=== PATIENT | male | born 1950 | race Caucasian/White ===

== ENCOUNTER 2017-11-17 09:45 | Inpatient (IN) | payer OTHER ==
[2017-11-17] MEDS ORDERED: ACETAMINOPHEN 325 MG TAB PO ONE (10:01)
[2017-11-17] MEDS ORDERED: DEXAMETHASONE 4 MG/ML VIAL IVP ONE (10:01)
[2017-11-17] MEDS ORDERED: TRANEXAMIC ACID 2,000 MG in NS 100 ML IV ONE (10:01)
[2017-11-17] MEDS ORDERED: POVIDONE-IODINE 20 ML in SODIUM CL IRRIG SOLUTION 500 ML IRR ONE (10:01)
[2017-11-17] MEDS ORDERED: LIDOCAINE 1% 2 ML INJ ID PRN (10:01)
[2017-11-17] MEDS ORDERED: ONDANSETRON DISINTEGRATING 4 MG TAB PO ONE (10:01)
[2017-11-17] MEDS ORDERED: GABAPENTIN 300 MG CAP PO ONE (10:01)
[2017-11-17] MEDS ORDERED: ROPIVACAINE 0.2% 80 MG, EPINEPHrine 0.2 MG, KETOROLAC TROMETHAMINE 30 MG in SYRINGE 0 ML IU ONE (10:01)
[2017-11-17] MEDS ORDERED: LR 1,000 ML IV ONE (10:01)
[2017-11-17] MEDS ORDERED: FAMOTIDINE 20 MG TAB PO ONE (10:01)
[2017-11-17] MEDS ORDERED: ceFAZolin 2 GM/SWFI 2 GM/20 ML SYR IVP ONE (10:01)
[2017-11-17] MEDS ORDERED: ceFAZolin 1 GM/5 ML SYR ONE (10:03)
[2017-11-17] MEDS ORDERED: ONDANSETRON DISINTEGRATING 4 MG TAB ONE (10:23)
--- NOTE | 2017-11-17 13:43 | PDHPUP ---
History & Physical Update H&P update statement: This history and physical update is based on an assessment of the patient which was completed after admission or registration (within 24 hours), but prior to the surgery/procedure. H&P update: H&P reviewed & patient examined, no change in patient's condition since H&P completed
--- NOTE | 2017-11-17 13:57 | PDANEPAE ---
ANE History of Present Illness r oliva ANE Past Medical History - Cardiovascular History Hx Hypertension: Yes Hx Arrhythmias: No Hx Chest Pain: No Hx Coronary Artery / Peripheral Vascular Disease: Yes Hx CHF / Valvular Disease: No Hx Palpitations: No Cardiovascular History Comment: CARDIAC STENT X1 - Pulmonary History Hx COPD: No Hx Asthma/Reactive Airway Disease: No Hx Recent Upper Respiratory Infection: No Hx Oxygen in Use at Home: No Hx Sleep Apnea: No Sleep Apnea Screening Result - Last Documented: Negative Pulmonary History Comment: ALLERGIES RAGWEED - Neurologic History Hx Cerebrovascular Accident: No Hx Seizures: No Hx Dementia: No - Endocrine History Hx Diabetes: No - Renal History Hx Renal Disorders: No - Liver History Hx Hepatic Disorders: No - Neurological & Psychiatric Hx Hx Neurological and Psychiatric Disorders: No - Cancer History Hx Cancer: Yes Cancer History Comment: RECTAL CANCER TXD W/CHEMO & SURGERY - Congenital Disorder History Hx Congenital Disorders: No - GI History Gastrointestinal History Comment: ULCERS IN PAST - Other Health History Other Health History: 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 TKA L. DEVIATED SEPTUM. SURI HAND SURGERY. ILEOSTOMY. RECTAL CANCER. REVERSE ILEOSTOMY. STENT CARDIAC PLACED 2006. STOMACH ULCERS CAUTERIZED ANE Review of Systems Review of Systems: - Exercise capacity Exercise capacity: >=4 METS METS (RN): 4 METS ANE Patient History - Allergies Allergies/Adverse Reactions: No Known Allergies Allergy (Unverified 11/03/17 11:40) - Home Medications Home Medications: Aspirin [Aspirin 81mg (*)] 81 mg PO DAILY 11/03/17 [Last Taken 11/10/17] Cholecalciferol Vit D3 [Vitamin D3 (*)] 1,000 units PO DAILY 11/03/17 [Last Taken 11/10/17] Cyanocobalamin [Vitamin B12 (*)] 1,000 mcg PO DAILY 11/03/17 [Last Taken ] Herbals/Supplements -Info Only 1 ea PO DAILY 11/03/17 [Last Taken 11/10/17] Losartan Potassium [Cozaar 50 mg (*)] 100 mg PO DAILY 11/03/17 [Last Taken 11/16] Rosuvastatin Calcium [Crestor 10mg (RX)] 5 mg PO SUWE 12/26/17 [Last Taken 11/15] celeCOXIB [Celebrex (*)] 200 mg PO DAILY 11/03/17 [Last Taken 11/16/17] traZODone [traZODONE 100MG (*)] 100 - 200 mg PO HS 11/03/17 [Last Taken 11/16/17 ] oxyCODONE/APAP 5/325 [Percocet 5/325 (*)] 1 tab PO DAILY PRN 11/17/17 [Last Taken 11/16/17] - NPO status NPO Status: no food or drink >8 hours NPO Since - Liquids (Date): 11/17/17 NPO Since - Liquids (Time): 01:00 NPO Since - Solids (Date): 11/16/17 NPO Since - Solids (Time): 23:00 - Anes Hx Anes Hx: no prior problems Hx Anesthesia Complications (with details): difficult DL, ok with Mccarr/BMV - Smoking Hx Smoking Status: Former smoker - Alcohol Use Alcohol Use: Occasionally - Family Anes Hx Family Hx Anesthesia Complications: NONE ANE Labs/Vital Signs - Vital Signs Vital Signs: reviewed preoperatively; see RN documention for details Blood Pressure: 143/90 Heart Rate: 64 Respiratory Rate: 16 O2 Sat (%): 94 Height: 173.99 cm Weight: 99.79 kg ANE Physical Exam - Airway Neck exam: increased neck circumference Mallampati Score: Class 4 Mouth exam: normal dental/mouth exam - Pulmonary Pulmonary: no respiratory distress - Cardiovascular Cardiovascular: regular rate and rhythym - ASA Status ASA Status: III ANE Anesthesia Plan Anesthesia Plan: spinal
[2017-11-17] MEDS ORDERED: MIDAZOLAM 2 MG/2 ML VIAL IVP ONE (13:59)
[2017-11-17] MEDS ORDERED: MIDAZOLAM 2 MG/2 ML VIAL ONE (14:03)
[2017-11-17] MEDS ORDERED: PROPOFOL/EMULSION 500 MG/50 ML BOTTLE IV ONE ×2 (14:11→15:14)
[2017-11-17] MEDS ORDERED: LIDOCAINE 2% 100 MG/5 ML SYR ONE (14:11)
[2017-11-17] MEDS ORDERED: ONDANSETRON 4 MG/2 ML VIAL ONE (15:47)
[2017-11-17] MEDS ORDERED: HYDROCODONE/APAP 5/325 TAB PO PRN (15:56)
[2017-11-17] MEDS ORDERED: NALOXONE HCL 0.4 MG/ML INJ IVP PRN (15:56)
[2017-11-17] MEDS ORDERED: ALBUTEROL 3 ML DEYVIAL IH PRN (15:56)
[2017-11-17] MEDS ORDERED: fentaNYL 100 MCG/2 ML INJ IVP PRN (15:56)
[2017-11-17] MEDS ORDERED: OXYCODONE/APAP 5/325 TAB PO PRN (15:56)
[2017-11-17] MEDS ORDERED: PROMETHAZINE HCL 25 MG/ML INJ IVP PRN ×2 (15:56→16:13)
--- NOTE | 2017-11-17 16:01 | POSTOPPROG ---
Post Op Note Date of Operation: 11/17/17 Surgeon: Eren Duncan Fruit Loader Machine Operator: Elsy Anesthesiologist: Dr. Shai Perry Anesthesia: IV Sedation, Spinal Post-op Diagnosis: Right hip severe degenerative arthritis Procedure: Right total hip arthroplasty. Inf/Abcess present in the surg proc area at time of surgery?: No EBL: 100-500
[2017-11-17] MEDS ORDERED: LACTULOSE 20 GM/30 ML UDCUP PO PRN (16:13)
[2017-11-17] MEDS ORDERED: ONDANSETRON DISINTEGRATING 4 MG TAB PO PRN (16:13)
[2017-11-17] MEDS ORDERED: MAGNESIUM HYDROXIDE 30 ML UDCUP PO PRN (16:13)
[2017-11-17] MEDS ORDERED: DIPHENOXYLATE/ATROPINE LOMOTIL 1 TAB PO PRN (16:13)
[2017-11-17] MEDS ORDERED: CYCLOBENZAPRINE 10 MG TAB PO PRN (16:13)
[2017-11-17] MEDS ORDERED: diphenhydrAMINE 25 MG CAP PO PRN (16:13)
[2017-11-17] MEDS ORDERED: PROMETHAZINE HCL 25 MG SUPPR PR PRN (16:13)
[2017-11-17] MEDS ORDERED: BISACODYL 10 MG SUPP PR PRN (16:13)
[2017-11-17] MEDS ORDERED: NS 500 ML IV PRN (16:13)
[2017-11-17] MEDS ORDERED: POLYETHYLENE GLYCOL 3350 17 GM PKT PO PRN (16:13)
[2017-11-17] MEDS ORDERED: traMADol 50 MG TAB PO PRN (16:13)
[2017-11-17] MEDS ORDERED: METOCLOPRAMIDE 10 MG/2 ML VIAL IVP PRN (16:13)
[2017-11-17] MEDS ORDERED: ONDANSETRON 4 MG/2 ML VIAL IVP PRN (16:13)
[2017-11-17] MEDS ORDERED: TEMAZEPAM 15 MG CAP PO PRN (16:13)
[2017-11-17] MEDS ORDERED: KETOROLAC 30 MG/1 ML SDV IVP PRN (16:13)
--- NOTE | 2017-11-17 16:17 | POSTANESTH ---
Post Anesthetic Evaluation Cardiovascular Status: Normal, Stable Respiratory Status: Normal, Stable Level of Consciousness/Mental Status: Can Participate in Eval Pain Control: Adequate, Prn Tx Ordered Nausea/Vomiting Control: Adequate, Prn Tx Ordered Complications Possibly Related to Anesthesia: None Noted
[2017-11-17] MEDS ORDERED: LR 1,000 ML IV SCH (16:30)
--- NOTE | 2017-11-17 16:42 | GOP ---
[f rep st] OPERATIVE REPORT DATE OF OPERATION: 11/17/2017 SURGEON: Eren Duncan MD HISTOPATH TECH: GEORGE Lowry. Alexandr Xiong CFA. ANESTHESIA: A combination of Marcaine, spinal, and IV sedation, ANESTHESIOLOGIST: Shai Perry MD PREOPERATIVE DIAGNOSIS: Right hip severe degenerative arthritis. POSTOPERATIVE DIAGNOSIS: Right hip severe degenerative arthritis. PROCEDURE PERFORMED: Right total hip arthroplasty, ceramic femoral head on highly cross-linked polye thylene cup liner. FINDINGS: DESCRIPTION OF PROCEDURE: The patient was given 2 g of IV Ancef preoperatively within 60 minutes of surgery. He also received IV tranexamic acid at a dose of 20 mg/kg. He was placed on the operating room table and given spinal anesthesia with Marcaine by Dr. Perry. He was then placed supine and given IV sedation. A Beach catheter was not used. He wore a STEVE stocking and SCD on the nonoperativ e leg. He was rolled to the left lateral decubitus position. The position was secured with the peg oard table attachment. An axillary roll was used, and all pressure points were carefully padded. I was careful to lock his pelvis in a rigid vertical position. His perineum was isolated with plastic adhesive drapes. The right hip and right lower extremity were prepped with ChloraPrep. They were dr aped free using sterile sheets, stockinette, and Ioban plastic drapes. The [employer] time-out was performed to verify the correct surgical side and site, an d the correct patient identity. The [place] time-out was also performed. I made a 6-inch straight oblique posterolateral hip skin incision. The subcutaneous tissues were sha rply divided, and hemostasis was obtained using electrocautery. His fascia mia was identified and s plit along the axis of its fibers. I curved posteriorly and proximally, and split the fascia of glut eus lucie and bluntly split the muscle fibers in line with their orientation. The Charnley self-re taining retractor was inserted. His sciatic nerve was located and protected throughout the procedure . The external rotators and the posterior hip capsule were divided as separate layers at the base of the femoral neck, tagged, and reflected posteriorly. A smooth 8-inch Steinmann pin was inserted cheko tically into the ilium, superior to the acetabulum. A 1/8-inch drill bit was inserted vertically int o the greater trochanter and parallel to the first pin. The distance between the 2 was measured for leg length reference. His femoral head was dislocated posteriorly. Severe degenerative changes were present on the femoral head. The femoral neck was osteotomized at the appropriate level and inclina tion. I was careful to preserve all the posterior capsule and most of the anterior capsule. The remnant of the damaged labrum was excised. I prepared the femur first. This allowed me to pipe fitter fire sprinkler systems the amount of natural femoral neck anteversion. He had about 15 degrees of natural femoral neck anteversion. This was more than usual for a male. Knowing the amount of femur anteversion allowed me to later determine the correct amount of cup ante version. The canal was opened laterally with a box chisel. I reamed and hand broached sequentially up to a size 7. I was using the Chary Accolade II stem in a size 7 with high offset. I was carefu l to lateralize adequately. Appropriate retractors were inserted to expose the acetabulum. The acetabulum was reamed sequentiall y up to a size 53. I selected a 54 mm Chary Tritanium solid-backed hemispherical shell. This was tapped securely into place in the proper degree of inclination and anteversion. I used the transvers e acetabular ligament and other acetabular bony landmarks to help me properly orient the cup. Supple mental screw fixation was not necessary. I inserted a screw-in metal dome hole plug. He had a large posterior-inferior osteophyte which I removed with an osteotome and rongeur. I performed a series of trial reductions to determine length and stability. I concluded that the siz e 7 stem and a high offset with the -2.5 mm neck length, a 36 mm head and a flush liner gave me the p hilary combination of appropriate length and good anterior and posterior stability. The flush Chary X3 highly cross-linked polyethylene liner was inserted and tapped securely into edy ce. I chose the Parkman Accolade II stem in a size 7 with high offset. This was inserted, press-fit and was very tight. I did 1 final trial reduction and confirmed that the -2.5 mm neck length with a 36 mm head was the proper combination. The Parkman Biolox Delta ceramic head with an outside diamet er of 36 mm and a neck length of -2.5 mm was tapped securely onto the clean trunnion. The acetabulum was irrigated and cleaned, and the hip was reduced 1 final time. He had excellent anterior and post erior stability. 40 mL of the joint anesthetic cocktail was injected into the capsule, the deep musculature, and the s ubcutaneous tissues along the skin edges. The joint was thoroughly irrigated 1 final time with a dil venetie ira Betadine solution. His sciatic nerve was reinspected and looked unharmed. The external rotators and the posterior capsule were repaired in separate layers with #2 FiberWire aguilar tures through drilled holes in the greater trochanter. The fascia mia was closed first with two #2 [id number] FiberWire sutures, followed by a running #2 barbed Ethicon Stratafix PDO suture. The subcutaneous tissues were closed with a running 0 barbed Ethicon Stratafix Monoderm suture. The ski n was closed with a running 3-0 barbed Ethicon Stratafix Monoderm subcuticular suture. The skin edge s were reapproximated and sealed with Dermabond glue. The wound was covered with a large piece of wa ter-proof Mepilex surgical dressing. A long-leg STEVE stocking and SCD were applied to his right lower extremity. He wore a stocking and SC D on the opposite leg during the procedure. An abduction pillow was placed between his knees. He wa s awakened from anesthesia and rolled to the supine position on [facility] He was taken to PACU in satisfactory condition. There were no recognized intraoperative complications. The estimated blood loss was about 400 mL. The sponge and needle count were correct on 2 occasions. I used a Parkman Tritanium hemispherical solid-backed acetabular shell with an outside diameter of 54 mm. The liner was a Parkman X3 flush, highly cross-linked liner with an inside diameter of 36 mm. The femoral component was a press-fit Parkman Accolade II high offset stem in size 7. The femoral he ad was a Chary Biolox Delta ceramic head with a -2.5 mm neck length and a 36 mm outside diameter. Nathan Holcomb and Alexandr Xiong acted as surgical assistants. Their assistance was a medical necess ity for safe completion of the procedure. Copy requested to: John Joe MD [place], [place] /[id number]/MODL
[2017-11-17 18:09] VITALS: RESP 16
[2017-11-17] MEDS: oxyCODONE IR 5 MG TAB PO PRN ×3 (18:26→22:34)
[2017-11-17] MEDS: ACETAMINOPHEN 325 MG TAB PO SCH ×2 (18:26→22:59)
[2017-11-17] MEDS ORDERED: traZODone 100 MG TAB PO SCH (21:00)
[2017-11-17] MEDS: ceFAZolin 2 GM/DEXTROSE 100 ML IV SCH (22:29)
[2017-11-17] MEDS: SENNOSIDES/DOCUSATE SODIUM TAB PO SCH (22:29)
[2017-11-17] MEDS: TRANEXAMIC ACID 650 MG TAB PO SCH (22:29)
[2017-11-17] MEDS: FAMOTIDINE 20 MG TAB PO SCH (22:29)
[2017-11-17] MEDS: ASPIRIN 325 MG TAB PO SCH (22:34)
[2017-11-18] MEDS: oxyCODONE IR 5 MG TAB PO PRN ×3 (01:25→10:01)
[2017-11-18 04:56] VITALS: O2SAT 94
[2017-11-18] MEDS: ACETAMINOPHEN 325 MG TAB PO SCH (05:00)
[2017-11-18] MEDS: ceFAZolin 2 GM/DEXTROSE 100 ML IV SCH (05:02)
[2017-11-18] MEDS: TRANEXAMIC ACID 650 MG TAB PO SCH (06:05)
[2017-11-18 08:05] VITALS: BP 133/62; PULSE 67; TEMP 97.9
[2017-11-18] MEDS ORDERED: LOSARTAN POTASSIUM 50 MG TAB PO SCH (09:00)
[2017-11-18] MEDS ORDERED: FERROUS SULFATE 140 MG TAB.ER PO SCH (09:00)
--- NOTE | 2017-11-18 09:30 | SOAPPROG ---
SOAP Progress Note Assessment/Plan: Assessment: Afebrile. Awake and alert. He has been walking in the room. His dressing is dry. Sciatic nerve is intact. Postop H&H are good. Postop films look excellent. Plan: Up with physical therapy for walking in the morgan and stairs. Discharged later today. 11/18/17 09:29 Objective: Vital Signs Temp Pulse Resp BP Pulse Ox 36.6 C 67 16 133/62 H 94 11/18/17 08:00 11/18/17 08:00 11/18/17 08:00 11/18/17 08:00 11/18/17 08:00 Laboratory Results 11/18/17 05:31 11/17/17 11/18/17 11/19/17 05:59 05:59 05:59 Intake Total 2770 Output Total 400 Balance 2370 ICD10 Worksheet Patient Problems: Problems Problem Status Onset Osteoarthritis of right hip Acute
[2017-11-18] MEDS: SENNOSIDES/DOCUSATE SODIUM TAB PO SCH (09:59)
[2017-11-18] MEDS: ASPIRIN 325 MG TAB PO SCH (10:00)
[2017-11-18] MEDS: FAMOTIDINE 20 MG TAB PO SCH (10:00)
--- NOTE | 2017-11-18 10:05 | GDS ---
[f rep st] DISCHARGE SUMMARY ADMISSION DIAGNOSIS: Right hip severe degenerative arthritis. DISCHARGE DIAGNOSIS: Right hip severe degenerative arthritis. OPERATION PERFORMED: 11/17/2017, a right total hip arthroplasty. POSTOPERATIVE COMPLICATIONS: None. CONDITION ON DISCHARGE: Improved. DESCRIPTION OF HOSPITAL COURSE: The patient was admitted to the hospital on the morning of surgery. On the same day, under a combination of Marcaine, spinal, and IV sedation, he underwent a right tota l hip arthroplasty. Postoperatively, he was treated with multimodal DVT prophylaxis, including aspir in. On the first postoperative day, his hemoglobin and hematocrit were 13.4 and 39.4. He was seen b y Physical Therapy and made rapid progress with ambulation and stairs. By the time of discharge, he was afebrile, his wound was dry, and he was independent walking. DISPOSITION: The patient discharged to his home. He will go to outpatient physical therapy in [facility]. He may progress to full weightbearing on the right as tolerated, use an abduction pillow in bed for 3 weeks. STEVE stockings for 1 week. He has prescriptions for oxycodone and tramadol for brenton n control. I will see him back in the office on 12/07/2017. If there are any problems, he is to libia zamora at the office. Copy requested to: Dr. John Joe [place], [place] /[id number]/MODL
--- NOTE | 2017-11-18 14:48 | ASDISCHSUM ---
Discharge Information Plan Status:Home with No Needs Medically Cleared to Leave: Discharge Date:11/18/2017 11:57 AM CM D/C Disposition:Home, Routine, Self-Care ADT D/C Disposition:Home, Routine, Self-Care Projected Discharge Date:11/18/2017 11:57 AM Transportation at D/C: Discharge Delay Reason: Follow-Up Date:11/18/2017 11:57 AM Discharge Slot: Final Diagnosis: Placement Information Patient Contact Information Contact Name:FRANCESCA Relationship: Address: Work Phone: City: [facility] Phone: State/[employer] Code: Email: Financial Information Financial Class: Primary Plan Desc:MEDICARE INPATIENT Primary Plan Number:[id number] Secondary Plan Desc:MEDICO Secondary Plan Number:[id number] Assessment Information CM Global Marketing Intern Assessment CJR Did you go to joint Answers: Yes class? CM Note CM Note Notes: Ayad would like to have home health PT services for 1 week. His will be able to care for him at home, but they are not able to drive to outpatient physical therapy. He does not have a preference for an agency. Ayad has attended the [facility] and has all mobility equipment. Ayad scored a 10 on the RAFT scale, meaning he is suitable to discharge directly home. Date Signed: 11/06/2017 10:34 AM Electronically Signed By:Renetta Jhaveri [facility] Progress Note CM Note CM Note Notes: PT rec HHC, pt ambivalent about having HHC. FILIPPO Roberto recommendation is pt follow up with outpatient PT due to pt ambivalence and pt hip is very stable. Informed pt the rec is outpatient and he and are agreeable, state they "trust Dr. Duncan." No CM d/c needs identified. Date Signed: 11/18/2017 02:47 PM Electronically Signed By:NATALY Hobbs Intervention Information
[2017-11-18] MEDS ORDERED: ROSUVASTATIN CALCIUM 10 MG TAB PO SCH (16:11)
== END 2017-11-18 11:57 | disposition home or self-care (01) | DRG 470 ==
LOC: F3N 09:45
PROVIDERS: ADMIT Orthopaedic Surgery; ATTEND Orthopaedic Surgery
PROC: 0SR904Z Replacement of Right Hip Joint with Ceramic on Polyethylene Synthetic Substitute, Open Approach (ICD-10-PCS; principal; 2017-11-17 11:15)
DX: M16.11 Unilateral primary osteoarthritis, right hip (principal); I10 Essential (primary) hypertension; Z95.5 Presence of coronary angioplasty implant and graft; Z87.891 Personal history of nicotine dependence; Z85.048 Personal history of other malignant neoplasm of rectum, rectosigmoid junction, and anus; Z96.652 Presence of left artificial knee joint
CPT/HCPCS: 97161-GP; 97165-GO; 97530-GP; G8978-GP-CI; G8979-GP-CI; G8980-GP-CI; G8987-GO-CI; G8988-GO-CI; G8989-GO-CI; J0171; J0690; J1100; J1885; J2001; J2250; J2405; J2704; J2795